=== PATIENT | male | born 1945 | race Caucasian/White ===

== ENCOUNTER 2016-09-15 21:02 | Emergency (ER) | payer OTHER ==
[~2016-09-15] VITALS: Ht 170.2 cm; Wt 85.0 kg
[2016-09-15] MEDS ORDERED: MIRALAX17 GM PO (23:39)
[2016-09-16 01:04] VITALS: BP 154/75
== END 2016-09-16 01:07 | disposition home or self-care (01) ==
LOC: EME 21:02
DX: K59.00 Constipation, unspecified (principal); G89.29 Other chronic pain
CPT/HCPCS: 74020; 80053; 83690; 85025; 99281; 99284